=== PATIENT | female | born 1970 | race Hispanic/Latino ===

== ENCOUNTER → 2018-03-19 | Outpatient (CLI) | payer OTHER ==
--- NOTE | 2018-03-19 16:24 | Diagnostic Imaging Report ---
Left knee MRI without contrast. History: Knee pain. Meniscus tear. Decreased range of motion. Pain worse with walking. Comparison: None. Technique: Multiplanar multi-sequence MRI of the knee without contrast. Findings: Medial compartment: There is a complex tear involving the posterior horn and body segments with a 2 mm posterior perimeniscal cyst best seen on sagittal series 9 image 29. The medial compartmental articular cartilage surfaces are thinned with regions of fraying and fissuring. There are small peripheral marginal osteophytes. The medial collateral ligament complex is intact. Lateral compartment: No meniscal tear or cartilage abnormality. The LCL complex is normal. Intercondylar notch: The ACL and PCL are intact. Patellofemoral compartment: There is articular cartilage fraying and deep fissuring in the patellofemoral compartment. Extensor mechanism: The quadriceps and patellar tendons are normal. Other findings: There is a joint effusion and synovitis. There is no acute fracture, subluxation or avascular necrosis. There is a tiny Cain's cyst. 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 Articular cartilage fraying and deep fissuring in the patellofemoral compartment. Signed by: Dr. Zafar Hayden M.D. on 03/19/2018 4:21 PM
--- NOTE | 2018-03-19 16:28 | Diagnostic Imaging Report ---
Right knee MRI without contrast. History: Knee pain. Meniscus tear. Decreased range of motion. Pain worse with walking. Comparison: None. Technique: Multiplanar multi-sequence MRI of the knee without contrast. Findings: Medial compartment: There is degeneration and fraying of the medial meniscus with a nondisplaced obliquely oriented tear adjacent to the posterior root best seen on sagittal series 3 image 23. The medial compartmental articular cartilage surfaces are slightly thin regions of fraying and fissuring. There is a small subchondral cyst at the posterior central medial tibial plateau best seen on coronal series 5 image 17. There are small peripheral marginal osteophytes. The medial collateral ligament complex is intact. Lateral compartment: No meniscal tear or cartilage abnormality. The LCL complex is normal. Intercondylar notch: The ACL and PCL are intact. Patellofemoral compartment: There is articular cartilage fraying and deep fissuring in the patellofemoral compartment. Extensor mechanism: The quadriceps and patellar tendons are normal. Other findings: There is a joint effusion and synovitis. There is no acute fracture, subluxation or avascular necrosis. 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 Articular cartilage fraying and deep fissuring in the patellofemoral compartment. Signed by: Dr. Zafar Hayden M.D. on 03/19/2018 4:24 PM
== END ==
LOC: MRI 14:20
PROVIDERS: ATTEND Specialist
DX: S83.222A Peripheral tear of medial meniscus, current injury, left knee, initial encounter (principal); S83.221A Peripheral tear of medial meniscus, current injury, right knee, initial encounter

== ENCOUNTER → 2018-12-21 | Outpatient (CLI) | payer OTHER | LOC: MAMMO 10:59 | PROVIDERS: ATTEND Family Medicine | DX: Z12.31 Encounter for screening mammogram for malignant neoplasm of breast (principal) | CPT/HCPCS: 77067 ==